=== PATIENT | female | born 1985 | race African-American/Black ===

== ENCOUNTER 2017-10-15 08:35 | Emergency (ER) | payer SELFPAY ==
[~2017-10-15] VITALS: Ht 160 cm; Wt 100.0 kg
[2017-10-15] MEDS ORDERED: CEFTRIAXONE SODIUM 1 G/VIAL IM ONE (09:30)
[2017-10-15] MEDS ORDERED: HYDROCODONE/ACETAMINOPHEN 5/325MG TABLET PO ONE (09:30)
[2017-10-15] MEDS ORDERED: LIDOCAINE HCL 1% 20ML VIAL (Pyxis) INJ INFIL ONE (09:30)
[2017-10-15 09:53] VITALS: BP 171/99
== END 2017-10-15 10:47 | disposition home or self-care (01) ==
LOC: ER 08:41
DX: K04.7 Periapical abscess without sinus (principal)
CPT/HCPCS: 96372; 99283; J0696; J3490